=== PATIENT | male | born 1985 | race Caucasian/White ===

== ENCOUNTER 2019-06-22 15:14 | Emergency (ER) | payer BC ==
[~2019-06-22] VITALS: Ht 180.3 cm; Wt 98.0 kg
[2019-06-22] MEDS ORDERED: CYCL10TA2 PO (17:11)
--- NOTE | 2019-06-22 17:12 | PHYS DOC ---
Past Medical History Past Medical History: High Cholesterol Past Surgical History: Other Additional Past Surgical Histo: R wrist frx repair,R knee ligament repair Alcohol Use: Occasionally Drug Use: None Adult General Chief Complaint Chief Complaint: Neck Pain HPI HPI Patient is a very pleasant 33-year-old male who presents to the emergency department for evaluation. He states he was fine when he went to bed last night, but awakened with severe pain in the right side of his neck, in his trapezius and sternocleidomastoid area. He states the pain is worsened with rotating his head to the right. He DENIES any headache at this time. He has not had any fevers or chills, vision changes, numbness, weakness. Other than palpation of the affected area, and movement, particularly rightward rotation of his neck, worsening his pain, there are no alleviating or exacerbating factors to his pain otherwise. He went to an urgent care center and then was referred to this facility, for the possibility of subarachnoid hemorrhage, although he does not have a headache. Review of Systems Review of Systems Constitutional: Denies fever or chills [] Eyes: Denies change in visual acuity, redness, or eye pain [] HENT: Denies nasal congestion or sore throat [] GI: Denies abdominal pain, nausea, vomiting, bloody stools or diarrhea [] Musculoskeletal: Denies back pain or joint pain [] Integument: Denies rash or skin lesions [] Neurologic: Denies headache, focal weakness or sensory changes [] Physical Exam Physical Exam PHYSICAL EXAM: CONSTITUTIONAL: Well developed, well nourished HEAD: normocephalic, atraumatic EENT: PERRL, EOMI. Conjunctivae normal color, sclerae non-icteric; moist mucous membranes. NECK: Supple, there are no bruits; no meningismus. There is tenderness to palpation to the right trapezius muscle on the right sternocleidomastoid muscle, which are mildly firm, suggesting muscle spasm. There is no tenderness to palpation to the anterior neck soft tissues or vascular tract. There is normal range of motion of the cervical spine, with no bony tenderness to palpation of the cervical spine. Rightward rotation of the head is somewhat more painful than flexion or extension or leftward rotation. LUNGS: Lungs CTA, breathing even and unlabored. Normal air movement. HEART: Regular rate and rhythm, no murmur CHEST: No deformity; non-tender ABDOMEN: The abdomen is soft, and non-tender, no masses or bruits. EXTREM: Normal ROM; no deformity, no calf tenderness. Normal pulses palpable in all extremities. There is no pedal edema. SKIN: No rash; no diaphoresis NEURO: Alert; normal speech and cognition; CN's grossly intact; strength grossly intact without focal deficit. BACK: No CVA TTP. Current Patient Data Vital Signs Vital Signs Date Time Temp Pulse Resp B/P (MAP) Pulse Ox O2 Delivery O2 Flow Rate FiO2 06/22/19 16:12 98.6 74 18 152/89 (110) 98 Room Air 98.6 EKG EKG [] Radiology/Procedures Radiology/Procedures [] Course & Med Decision Making Course & Med Decision Making I had an extensive discussion with the patient about his presenting symptoms, which are fairly typical for torticollis. Clinical suspicion for subarachnoid hemorrhage or meningitis is extremely low, given the lack of headache. I did discuss the possibility of doing a CT scan and a lumbar puncture to definitively rule out serious diagnoses with the patient, although he declined and clinical suspicion for such is very low. I discussed the importance of close follow-up, medications, and return precautions in detail. Dragon Disclaimer Dragon Disclaimer This electronic medical record was generated, in whole or in part, using a voice recognition dictation system. Departure Departure Impression: Primary Impression: Torticollis Disposition: 01 HOME, SELF-CARE Condition: STABLE Referrals: VANNESA RICHTER MD (PCP) Patient Instructions: Musculoskeletal Pain, Torticollis, Acute Additional Instructions: Ibuprofen 400-600 mg every 6 hours may help improve your symptoms. Applying a heating pad to the affected area may help improve your symptoms. The prescribed medications may cause drowsiness-use caution while taking. Scripts Cyclobenzaprine Hcl (CYCLOBENZAPRINE HCL) 10 Mg Tablet 1 TAB PO TID PRN for PAIN, #30 TAB Prov: BRENT SOARES MD 06/22/19 BRENT SOARES MD Jun 22, 2019 17:12
[2019-06-22 17:15] VITALS: BP 128/77
== END 2019-06-22 17:30 | disposition home or self-care (01) ==
LOC: ER 15:14
DX: M43.6 Torticollis (principal); M54.2 Cervicalgia; E78.00 Pure hypercholesterolemia, unspecified; Z98.890 Other specified postprocedural states
CPT/HCPCS: 99283